=== PATIENT | male | born 1970 | race Caucasian/White ===

== ENCOUNTER 2019-08-06 06:38 | Emergency (ER) | payer BC ==
[2019-08-06 06:43] VITALS: RESP 18; TEMP 98.3
--- NOTE | 2019-08-06 07:02 | ED ---
General Adult HPI - General Source: patient, EMS, RN notes reviewed Mode of arrival: EMS Limitations: no limitations <Juvencio Torres - Last Filed: 08/06/19 07:27> <Mason Foster - Last Filed: 08/06/19 08:47> - General Chief complaint: Recheck/Abnormal Lab/Rx Stated complaint: Male Time Seen by Provider: 08/06/19 06:45 - History of Present Illness Initial comments: 48-year-old male presents emergency Department with chief complaint of bleeding from his scrotal incision. Patient states he did cyst removed from his testicle 2 weeks ago in [place] where he lives. Patient states he is working down here at this time states that he went to put his boots on this morning when he felt some drainage. He states that he looked and noticed some bleeding, drainage from his incision site that ruptured. He states that he's had some discomfort since his procedure but states pain is not worse at this time. He states his been swelling that has been improving. 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 (Juvencio Torres) - Related Data Previous Rx's Medication Instructions Recorded Bacitracin Oint 1 applic TOPICAL BID #15 gm 08/06/19 Cephalexin [Keflex] 500 mg PO Q6HR #28 cap 08/06/19 Allergies Allergy/AdvReac Type Severity Reaction Status Date / Time No Known Allergies Allergy Verified 08/06/19 06:43 Review of Systems ROS Other: All systems not noted in ROS Statement are negative. <Juvencio Torres - Last Filed: 08/06/19 07:27> ROS Other: All systems not noted in ROS Statement are negative. <Mason Foster - Last Filed: 08/06/19 08:47> ROS Statement: Those systems with pertinent positive or pertinent negative responses have been documented in the HPI. Past Medical History Past Medical History: Diabetes Mellitus, Hypertension History of Any Multi-Drug Resistant Organisms: None Reported Past Surgical History: Heart Catheterization With Stent Additional Past Surgical History / Comment(s): 3 stents Past Psychological History: No Psychological Hx Reported Smoking Status: Never smoker Past Alcohol Use History: Occasional Past Drug Use History: Marijuana <Juvencio Torres - Last Filed: 08/06/19 07:27> General Exam Limitations: no limitations General appearance: alert, in no apparent distress Head exam: Present: atraumatic, normocephalic, normal inspection Respiratory exam: Present: normal lung sounds bilaterally. Absent: respiratory distress, wheezes, rales, rhonchi, stridor Cardiovascular Exam: Present: regular rate, normal rhythm, normal heart sounds. Absent: systolic murmur, diastolic murmur, rubs, gallop, clicks exam: Absent: normal inspection (Is a midline 3 cm open incision that has some mild blood and serosanguineous drainage there is moderate swelling of the scrotum with mild tenderness) Neurological exam: Present: alert, oriented X3 <Juvencio Torres - Last Filed: 08/06/19 07:27> Course Vital Signs 08/06/19 08/06/19 06:39 07:56 Temperature 98.3 F Pulse Rate 74 70 Respiratory 18 18 Rate Blood Pressure 168/98 160/84 O2 Sat by Pulse 98 98 Oximetry Medical Decision Making <Juvencio Torres - Last Filed: 08/06/19 07:27> <Mason Foster - Last Filed: 08/06/19 08:47> - Medical Decision Making 48-year-old male presented for wound he hasn't of the scrotal incision. There is some very minimal serous and was bloody tinged drainage. I discussed the case with his surgeon advised to prescribe him Keflex, topical and right ointment and he will see him in office today. Return parameters were discussed. (Juvencio Torres) I, Barrera Foster, personally saw and examined the patient. I have reviewed and agree with the PA findings, including all diagnostic interpretations and treatment plans as written unless otherwise stated. I was present for the jenkins p ortions of any procedures performed and the inclusive time noted for any critical care statement. (Mason Foster) Disposition Is patient prescribed a controlled substance at d/c from ED?: No Time of Disposition: 07:29 <Juvencio Torres - Last Filed: 08/06/19 07:27> <Mason Foster - Last Filed: 08/06/19 08:47> Clinical Impression: Wound dehiscence, surgical Disposition: HOME SELF-CARE Condition: Stable Instructions (If sedation given, give patient instructions): Wound Dehiscence (ED) Additional Instructions: Please return to the Emergency Department if symptoms worsen or any other concerns. Prescriptions: Bacitracin Oint 1 applic TOPICAL BID #15 gm Cephalexin [Keflex] 500 mg PO Q6HR #28 cap Referrals: Nonstaff,Physician [Primary Care Provider] - 1-2 days
[2019-08-06 07:57] VITALS: BP 160/84; PULSE 70
== END 2019-08-06 07:56 | disposition home or self-care (01) ==
LOC: EC 06:38
DX: T81.30XA Disruption of wound, unspecified, initial encounter (principal); Z95.5 Presence of coronary angioplasty implant and graft
CPT/HCPCS: 99283